=== PATIENT | male | born 1970 | race Caucasian/White ===

== ENCOUNTER 2023-11-22 09:49 | Outpatient (OUT) | payer OTHER, SELFPAY | END 2023-11-22 09:50 | disposition home or self-care (01) | PROVIDERS: PCP Family Medicine; Visit Provider Physician Assistant | DX: N52.9 Male erectile dysfunction, unspecified (principal); R68.82 Decreased libido | CPT/HCPCS: 36415; 84402; 84403 ==

== ENCOUNTER 2023-11-22 09:56 | Outpatient (OUT) | payer OTHER, SELFPAY ==
[2023-11-22 10:25] LABS: Basophils Absolute Auto 0.1 10^3/uL (0.0-0.1); Basophils Percent Auto 1.1 % (0.2-2.0); Eosinophils Absolute Auto 0.3 10^3/uL (0.0-0.7); Eosinophils Percent Auto 3.2 % (0.9-7.0); Hematocrit 52.1 % (42.0-54.0); Hemoglobin 17.2 g/dL (14.0-18.0); Immature Granulocytes Abs Auto 0.02 10^3/uL (0.00-0.03); Immature Granulocytes Pct Auto 0.2 % (0.0-0.5); Lymphocytes Absolute Auto 3.1 10^3/uL (1.2-3.8); Lymphocytes Percent Auto 32.7 % (20.5-60.0); Mean Corpuscular Hemoglobin 29.3 pg (25.9-34.0); Mean Corpuscular Volume 88.8 fL (80.0-94.0); Mean Platelet Volume 10.6 fL (9.5-13.5); Monocytes Absolute Auto 0.7 10^3/uL (0.3-0.8); Monocytes Percent Auto 7.7 % (1.7-12.0); Neutrophils Absolute Auto 5.2 10^3/uL (1.4-6.5); Neutrophils Percent Auto 55.1 % (43.0-75.0); Platelet Count 212 10^3/uL (150-450); Red Blood Count 5.87 10^6/uL (4.70-6.10); Red Cell Distribution Width 13.4 % (11.0-15.0); White Blood Count 9.4 10^3/uL (4.0-11.0)
[2023-11-22 10:34] LABS: Estimated Average Glucose 186 mg/dL; Glycohemoglobin A1C 8.1 % (4.5-6.2)
[2023-11-22 10:52] LABS: Alanine Aminotransferase 17 U/L (16-63); Albumin Globulin Ratio 0.7; Albumin Level 2.9 g/dL (3.4-5.0); Alkaline Phosphatase 161 U/L (46-116); Anion Gap 13.3; Aspartate Amino Transferase 11 U/L (15-37); BUN Creatinine Ratio 11.5; Bilirubin Total 0.5 mg/dL (0.2-1.0); Calcium 8.9 mg/dL (8.5-10.1); Chloride 103 mmol/L (98-107); Cholesterol 209 mg/dL (<=200); Estimated GFR (African America >60 (>=60); Estimated GFR (Non-African Ame >60 (>=60); Globulin 4.4 g/dL; Glucose 168 mg/dL (74-106); HDL Cholesterol 52 mg/dL (40-60); Potassium 4.3 mmol/L (3.5-5.1); Sodium 137 mmol/L (136-145); TSH W/ REFLEX FT4 1.246 uIU/mL (0.358-3.740); Total Protein 7.3 g/dL (6.4-8.2); Triglycerides 115 mg/dL (<=150)
[2023-11-22 10:57] LABS: Prostate Specific Antigen Scrn 0.72 ng/mL (<=4.00)
== END 2023-11-22 09:57 | disposition home or self-care (01) ==
LOC: LAB 09:56
PROVIDERS: PCP Family Medicine; Visit Provider Family Medicine
DX: Z00.00 Encounter for general adult medical examination without abnormal findings (principal); N52.9 Male erectile dysfunction, unspecified; R68.82 Decreased libido; E11.9 Type 2 diabetes mellitus without complications; I25.10 Atherosclerotic heart disease of native coronary artery without angina pectoris; E78.5 Hyperlipidemia, unspecified; I10 Essential (primary) hypertension; R00.0 Tachycardia, unspecified; Z12.5 Encounter for screening for malignant neoplasm of prostate
CPT/HCPCS: 36415; 80053; 80061; 82043; 83036; 84443; 85025; G0103

== ENCOUNTER 2024-01-05 16:10 | Outpatient (OUT) | payer OTHER, SELFPAY ==
--- OUTSIDE RECORDS SUMMARY | 2024-01-05 16:16 | XMS_ITS | CCD ---
Author Organization [facility] Care Team Providers Care Vice President Regulatory Name Role Phone DR JENELLE CARMONA Attending Unavailable DR JENELLE CARMONA Consulting Unavailable DR JENELLE CARMONA Primary Care Unavailable DR JENELLE CARMONA Admitting Unavailable JENELLE CARMONA Primary Care Physician [phone] MARIA ESTHER MENDEZ Attending Unavailable Melanie Dubose Attending Unavailable Allergies Allergy Classification Reported Allergen(s) Allergy Type Date of Onset Reaction(s) Facility (1 source) No Known Medication Allergies; Translations: [No Known Medication Allergies] Propensity to adverse reactions (disorder) [facility] Repository Medications Current Medications Medication Drug Class(es) Dates Sig (Normalized) Sig (Original) lisinopril 10 mg oral tablet (4 sources) Angiotensin Converting Enzyme Inhibitor Start: 11-20-2023 take 1 tablet by mouth once daily lisinopril 10 mg Tab TAKE 1 TABLET BY MOUTH EVERY DAY Start Date: 11/20/23 Status: Ordered Start: 09-02-2023 End: 09-02-2023 take 10 mg by mouth once daily Lisinopril Active 10 MG PO Daily September 02, 2023 12:26pm Problems Active Problems Problem Classification Problem Date Documented Da te Episodic/Chronic Cardiac dysrhythmias (2 sources) Tachycardia; Translations: [Tachycardia, unspecified] 09-12-2023 Episodic Coronary atherosclerosis and other heart disease (2 sources) Coronary arteriosclerosis; Translations: [Atherosclerotic heart disease of [place] coronary artery without angina pectoris] 09-12-2023 Chronic Diabetes mellitus without complication (2 sources) Type 2 diabetes mellitus; Translations: [Type 2 diabetes mellitus without complications] 09-12-2023 Chronic Disorders of lipid metabolism (4 sources) Hyperlipidemia; Translations: [Hyperlipidemia, unspecified] 09-12-2023 Chronic Essential hypertension (4 sources) Hypertensive disorder; Translations: [Essential (primary) hypertension] 09-12-2023 Chronic Other endocrine disorders (1 source) Testicular hypofunction; Translations: [Testicular hypofunction] Onset: 12-12-2023 Chronic Other endocrine disorders (1 source) Male hypogonadism 12-12-2023 Chronic Other male genital disorders (7 sources) Male erectile dysfunction, unspecified; Translations: [Erectile disorder] Onset: 11-19-2023 09-12-2023 Chronic Other screening for suspected conditions (not mental disorders or infectious disease) (7 sources) Patient encounter status; Translations: [Encounter for screening for malignant neoplasm of prostate] Onset: 11-20-2023 09-12-2023 Episodic Unclassified (3 sources) CONTACT W/AND (SUSP) EXPOS COVID-19; Translations: [CONTACT W/AND (SUSP) EXPOS COVID-19] Onset: 04-26-2021 Unclassified (2 sources) Patient encounter status 11-20-2023 Past or Other Problems Problem Classification Problem Date Documented Da te Episodic/Chronic Unclassified (1 source) CONTACT W/AND (SUSP) EXPOS COVID-19; Translations: [CONTACT W/AND (SUSP) EXPOS COVID-19] Onset: 04-20-2021 Results Test Name Value Interpretation Reference Range Facil ity Urology Office/Clinic Noteon 12-22-2023 Urology Office/Clinic Note Urology Office/Clinic Note Chief Complaint office visit to [facility] low T HPI Staff NAREN pt here to discuss low testosterone. Last seen IO 11/20/23. Dx: ED, low testosterone, prostate cancer screening. Labs 11/22/23 - Testosterone 253 & 6.9 free, PSA 0.72, A1c 8.1, CBC, CMP Patient denies all urinary symptoms. History of Present Illness I have reviewed and verified the staff HPI to be accurate for this encounter. Portions of this record may have been created with voice recognition artificial intelligence software, specifically [employer] and or [employer] ([employer]). Substitutions may have occurred due to the inherent limitations of voice recognition and artificial intelligence software. Review of Systems PHQ Score Initial Depression Screen Score: 0 SCORE Physical Exam Vitals & Measurements HR: 114(Peripheral) BP: 129/82 HT: 71 in HT: 180 cm WT: 102 kg WT: 224.4 lb BMI: 31.48 General: Well developed, well nourished, in no acute distress. Patient is here in office with today. Assessment/Plan 1. Hypogonadism male (E29.1: Testicular hypofunction) Pt reports some fatigue, some low libido, decreased muscle mass. Denies mood issues. [1] Testosterone F&T 11/29/19 - 273 (low) & 9.8 (nl) [2] Testosterone F&T 11/22/23 - 253 & 6.9 (both low) We discussed that he does qualify for TRT based on his testosterone levels. However, he did have a few other labs which were out of normal limits which may need additional workup. Hematocrit 11/22/23 - 52.1 We discussed risks associated with polycythemia, especially in the setting of TRT. Discussed with patient that we expect to see hematocrit level rise with use of TRT. This would require him to routinely donate blood in order to keep his levels in a safe range. Recommend donation prior to starting TRT, then every 90 days thereafter. Will titrate based on follow-up hematocrit levels. Alkaline phosphatase 11/22/23 - 161 Will defer to PCP regarding further workup for alk phos level. Discussed with patient that this may be an isolated elevation which goes back to normal limits, but cannot assume this in the setting of TRT. I will send a letter to PCP regarding level. If workup is within normal limits, or level decreases, can initiate TRT. -Will send letter to PCP regarding alkaline phosphatase level -If given okay to start TRT, will start 200 mg testosterone every 4 weeks per patient preference. -Patient to donate blood prior to starting TRT and schedule for every 90 days thereafter, will titrate to needs based on follow-up hematocrit levels. -Patient to follow-up 6 to 8 weeks after initiation of TRT 2. ED (erectile dysfunction) (N52.9: Male erectile dysfunction, unspecified) TARAN 1 Failed sildenafil in the past. Patient previously expressed interest in hypogonadism workup, see #1 -Continue to monitor 3. Prostate cancer screening (Z12.5: Encounter for screening for malignant neoplasm of prostate) PSA: 11/29/19 - 0.74 11/22/23 - 0.72 PSA remains low and stable Denies any family history of prostate CA -Continue to monitor, especially if moving forward with TRT Follow-up With When Contact Information VANESSA MORALES, MARIA ESTHER E, URL [address] [place] [id number] Additional Instructions: 6 to 8 weeks after the initiation of TRT, to be scheduled after hearing from PCP regarding LFTs Patient Education Cancer Screening for Males Hypogonadism, Male Problem List/Past Medical History Ongoing ED (erectile dysfunction) Hyperlipidemia Hypertension Hypogonadism male Low testosterone Prostate cancer screening Historical Male erectile dysfunction, unspecified Procedure/Surgical History None. Medications lisinopril 10 mg Tab Allergies No Known Medication Allergies Social History Tobacco 10 or more cigarettes (1/2 pack or more)/day in last 30 days Tobacco Use:. Never Smokeless Tobacco Use:. Cigarettes, Household tobacco concerns: No. Yes, 12/12/2023 Family History Family history is unknown [1] [facility]- [facility], referred for ED; MARIA ESTHER MENDEZ PA-C 11/20/2023 11:33 EDT [2] [facility], referred for ED; MARIA ESTHER MENDEZ PA-C 11/20/2023 11:33 EDT [facility] Comment on above: Result Comment: Elec tronically Signed By: TAM Dubose APRN, Melanie Laura\.br\Date and Time Signed: 12/22/23 06:45 EDT Provider Letteron 12-16-2023 Provider Letter Provider Letter JENELLE CARMONA, [address] [place] [id number] Re: KOKI HILL Date of : [address]BRAUN VERDUZCO, JENELLE HILL KOKI was evaluated at [facility] 12/12/2023 11:20:21 We discussed initiation of testosterone replacement therapy. However, on his labs prior to starting therapy, he had an isolated elevated alkaline phosphatase level of 161. I am deferring any further workup regarding this prior to starting TRT. I appreciate your assistance. Thank you Provider Signature: Melanie Hood APRN, FNP-C Nurse Practitioner [facility] [address] [place] [address] Normal [facility] Ambulatory Visit Summaryon 0 12-12-2023 Ambulatory Visit Summary Ambulatory Visit Summary CARLENE HILLANE :1970 Visit Date:12/12/2023 Ambulatory Visit Instructions Your Diagnosis Hypogonadism male ED (erectile dysfunction) Prostate cancer screening Your Care Team Attending Physician - TAM Dubose APRN, [place] [facility] Primary Care Physician - JENELLE CARMONA MD This Is Your Medications List Contact prescribing physician if questions or concerns lisinopril (lisinopril 10 mg Tab) Procedures Performed None. Discharge Vitals Heart Rate (Peripheral) 114 Blood Pressure 129/82 Height 180 cm Height 71 in Weight 102 kg Weight 224.4 lb BMI 31.48 Medications What When Instructions Unchanged lisinopril (lisinopril 10 mg Tab) TAKE 1 TABLET BY MOUTH EVERY DAY Contact prescribing physician if questions or concerns Allergies No Known Medication Allergies Problems Ongoing - Any problem that you are currently receiving treatment for. ED (erectile dysfunction) Hyperlipidemia Hypertension Hypogonadism male Low testosterone Prostate cancer screening Historical - Any problem that you are no longer receiving treatment for. Male erectile dysfunction, unspecified Patient Survey You may receive a survey via text or e-mail asking about your office visit. Please share your experience with us by completing your survey. We appreciate your feedback and thank you for choosing us for your care. [facility] Ambulatory Visit Summaryon 0 11-20-2023 Ambulatory Visit Summary Ambulatory Visit Summary KOKI HILL :1970 Visit Date:11/20/2023 Ambulatory Visit Instructions Your Diagnosis Erectile dysfunction Low testosterone Prostate cancer screening Your Care Team Attending Physician - MARIA ESTHER MENDEZ PA-C Primary Care Physician - JENELLE CARMONA MD This Is Your Medications List Contact prescribing physician if questions or concerns lisinopril (lisinopril 10 mg Tab) Procedures Performed None. Discharge Vitals Heart Rate (Peripheral) 111 Respiratory Rate 16 Blood Pressure 127/86 Height 180 cm Height 71 in Weight 102 kg Weight 224.4 lb BMI 31.48 What to do next You Need to Schedule the Following Appointments Follow Up with MARIA ESTHER MENDEZ PA-C, URL When: Comments: f/up pending labs Where: [address] [place] [address] Medications What When Instructions Unchanged lisinopril (lisinopril 10 mg Tab) TAKE 1 TABLET BY MOUTH EVERY DAY Contact prescribing physician if questions or concerns Allergies No Known Medication Allergies Problems Ongoing - Any problem that you are currently receiving treatment for. Hyperlipidemia Hypertension Low testosterone Prostate cancer screening Historical - Any problem that you are no longer receiving treatment for. Male erectile dysfunction, unspecified Patient Survey You may receive a survey via text or e-mail asking about your office visit. Please share your experience with us by completing your survey. We appreciate your feedback and thank you for choosing us for your care. Education Materials Erectile Dysfunction Erectile dysfunction (ED) is the inability to get or keep an erection in order to have sexual intercourse. ED is considered a symptom of an underlying disorder and is not considered a disease. ED may include: ? Inability to get an erection. ? Lack of enough hardness of the erection to allow penetration. ? Loss of erection before sex is finished. What are the causes? This condition may be caused by: ? Physical causes, such as: ? Artery problems. This may include heart disease, high blood pressure, atherosclerosis, and diabetes. ? Hormonal problems, such as low testosterone. ? Obesity. ? Nerve problems. This may include back or pelvic injuries, multiple sclerosis, Parkinson's disease, spinal cord injury, and stroke. ? Certain medicines, such as: ? Pain relievers. ? Antidepressants. ? Blood pressure medicines and water pills (diuretics). ? Cancer medicines. ? Antihistamines. ? Muscle relaxants. ? Lifestyle factors, such as: ? Use of drugs such as marijuana, cocaine, or opioids. ? Excessive use of alcohol. ? Smoking. ? Lack of physical activity or exercise. ? Psychological causes, such as: ? Anxiety or stress. ? Sadness or depression. ? Exhaustion. ? Fear about sexual performance. ? Guilt. What are the signs or symptoms? Symptoms of this condition include: ? Inability to get an erection. ? Lack of enough hardness of the erection to allow penetration. ? Loss of the erection before sex is finished. ? Sometimes having normal erections, but with frequent unsatisfactory episodes. ? Low sexual satisfaction in either partner due to erection problems. ? A curved penis occurring with erection. The curve may cause pain, or the penis may be too curved to allow for intercourse. ? Never having nighttime or morning erections. How is this diagnosed? This condition is often diagnosed by: ? Performing a physical exam to find other diseases or specific problems with the penis. ? Asking you detailed questions about the problem. ? Doing tests, such as: ? Blood tests to check for diabetes mellitus or high cholesterol, or to measure hormone levels. ? Other tests to check for underlying health conditions. ? An ultrasound exam to check for scarring. ? A test to check blood flow to the penis. ? Doing a sleep study at home to measure nighttime erections. How is this treated? This condition may be treated by: ? Medicines, such as: ? Medicine taken by mouth to help you achieve an erection (oral medicine). ? Hormone replacement therapy to replace low testosterone levels. ? Medicine that is injected into the penis. Your health care provider may instruct you how to give yourself these injections at home. ? Medicine that is delivered with a short applicator tube. The tube is inserted into the opening at the tip of the penis, which is the opening of the urethra. A tiny pellet of medicine is put in the urethra. The pellet dissolves and enhances erectile function. This is also called MUSE (medicated urethral system for erections) therapy. ? Vacuum pump. This is a pump with a ring on it. The pump and ring are placed on the penis and used to create pressure that helps the penis become erec (more content not included)... Normal [facility] Ambulatory Visit Summary Ambulatory Visit Summary KOKI HILL :1970 Visit Date:11/20/2023 Ambulatory Visit Instructions Your Diagnosis Erectile dysfunction Low testosterone Prostate cancer screening Your Care Team Attending Physician - MARIA ESTHER MENDEZ PA-C Primary Care Physician - JENELLE CARMONA MD This Is Your Medications List Contact prescribing physician if questions or concerns lisinopril (lisinopril 10 mg Tab) Procedures Performed None. Discharge Vitals Heart Rate (Peripheral) 111 Respiratory Rate 16 Blood Pressure 127/86 Height 180 cm Height 71 in Weight 102 kg Weight 224.4 lb BMI 31.48 What to do next You Need to Schedule the Following Appointments Follow Up with MARIA ESTHER MENDEZ PA-C, URL When: Comments: f/up pending labs Where: [address] [place] [address] Medications What When Instructions Unchanged lisinopril (lisinopril 10 mg Tab) TAKE 1 TABLET BY MOUTH EVERY DAY Contact prescribing physician if questions or concerns Allergies No Known Medication Allergies Problems Ongoing - Any problem that you are currently receiving treatment for. Hyperlipidemia Hypertension Low testosterone Prostate cancer screening Historical - Any problem that you are no longer receiving treatment for. Male erectile dysfunction, unspecified Patient Survey You may receive a survey via text or e-mail asking about your office visit. Please share your experience with us by completing your survey. We appreciate your feedback and thank you for choosing us for your care. Education Materials Erectile Dysfunction Erectile dysfunction (ED) is the inability to get or keep an erection in order to have sexual intercourse. ED is considered a symptom of an underlying disorder and is not considered a disease. ED may include: ? Inability to get an erection. ? Lack of enough hardness of the erection to allow penetration. ? Loss of erection before sex is finished. What are the causes? This condition may be caused by: ? Physical causes, such as: ? Artery problems. This may include heart disease, high blood pressure, atherosclerosis, and diabetes. ? Hormonal problems, such as low testosterone. ? Obesity. ? Nerve problems. This may include back or pelvic injuries, multiple sclerosis, Parkinson's disease, spinal cord injury, and stroke. ? Certain medicines, such as: ? Pain relievers. ? Antidepressants. ? Blood pressure medicines and water pills (diuretics). ? Cancer medicines. ? Antihistamines. ? Muscle relaxants. ? Lifestyle factors, such as: ? Use of drugs such as marijuana, cocaine, or opioids. ? Excessive use of alcohol. ? Smoking. ? Lack of physical activity or exercise. ? Psychological causes, such as: ? Anxiety or stress. ? Sadness or depression. ? Exhaustion. ? Fear about sexual performance. ? Guilt. What are the signs or symptoms? Symptoms of this condition include: ? Inability to get an erection. ? Lack of enough hardness of the erection to allow penetration. ? Loss of the erection before sex is finished. ? Sometimes having normal erections, but with frequent unsatisfactory episodes. ? Low sexual satisfaction in either partner due to erection problems. ? A curved penis occurring with erection. The curve may cause pain, or the penis may be too curved to allow for intercourse. ? Never having nighttime or morning erections. How is this diagnosed? This condition is often diagnosed by: ? Performing a physical exam to find other diseases or specific problems with the penis. ? Asking you detailed questions about the problem. ? Doing tests, such as: ? Blood tests to check for diabetes mellitus or high cholesterol, or to measure hormone levels. ? Other tests to check for underlying health conditions. ? An ultrasound exam to check for scarring. ? A test to check blood flow to the penis. ? Doing a sleep study at home to measure nighttime erections. How is this treated? This condition may be treated by: ? Medicines, such as: ? Medicine taken by mouth to help you achieve an erection (oral medicine). ? Hormone replacement therapy to replace low testosterone levels. ? Medicine that is injected into the penis. Your health care provider may instruct you how to give yourself these injections at home. ? Medicine that is delivered with a short applicator tube. The tube is inserted into the opening at the tip of the penis, which is the opening of the urethra. A tiny pellet of medicine is put in the urethra. The pellet dissolves and enhances erectile function. This is also called MUSE (medicated urethral system for erections) therapy. ? Vacuum pump. This is a pump with a ring on it. The pump and ring are placed on the penis and used to create pressure that helps the penis become erec (more content not included)... Normal [facility] Urology Office/Clinic Noteon 11-20-2023 Urology Office/Clinic Note Urology Office/Clinic Note Chief Complaint New Pt *ED HPI Staff New pt referred by Dr. Jenelle Carmona for ED. Last seen IO 07/24/17 by DLS for scrotal abscess. Only PSA on [facility] 11/29/19 - 0.74 Testosterone F&T 11/29/19 - 273 & 9.8 Has tried Viagra (dosage unknown), testosterone booster (OTC) in past yrs. Has been having problems achieving & maintaining erection. states they have not had sex in >9yrs. Denies all urinary sx. History of Present Illness Tests reviewed: reviewed UA, referral records I have reviewed the previous health record information and history for this patient from Dr. Jenelle Carmona . I have reviewed and verified the staff HPI to be accurate for this encounter. Review of Systems PHQ Score Initial Depression Screen Score: 0 SCORE no fever, chills, malaise, myalgia. no rash/lesions. no chest pain, palpitations, or SOB. no abdominal pain, nausea, vomiting. no unilateral calf swelling, redness, pain Physical Exam Vitals & Measurements HR: 111(Peripheral) RR: 16 BP: 127/86 HT: 71 in HT: 180 cm WT: 102 kg WT: 224.4 lb BMI: 31.48 General: nontoxic, NAD Mouth: moist mucosa Lungs: normal respiratory effort Cardio: regular rate, good distal perfusion Abdomen: nondistended, no suprapubic distention or tenderness, no CVA tenderness Neurologic: Grossly normal Skin: No rashes or suspicious lesions Assessment/Plan Last seen IO 07/24/17 by DLS for scrotal abscess. Pt is accompanied by his today. New pt referred by Dr. Jenelle Carmona for ED. Review of PCP referral note from 09/12/23 states personal hx CAD, CVA, PAD, DM II. Pt DENIES these diseases. Says he was told by his escapement matcher that his eyes showed signs of potential DM, but pt has no recent A1c and has never been on medication for DM. Pt denies CAD/PAD/CVA, has no idea why these are in his note. IPSS 1. No urinary complaints. Pt unable to provide urine sample today. 1. Erectile dysfunction (N52.9: Male erectile dysfunction, unspecified) TARAN 1. Pt has issues achieving erection yes, firmness yes, maintaining erection yes ED contributing factors: Cardiovascular disease no, hypertension yes, diabetes mellitus unsure (Says he was told by his escapement matcher that his eyes showed signs of potential DM, but pt has no recent A1c and has never been on medication for DM), hyperlipidemia yes(on previous labs, not on current meds) smoking yes recreational drugs no, alcohol no, major surgery (radical prostatectomy) or radiotherapy (pelvis or retroperitoneum) no Spinal cord and brain injuries no, Parkinson disease no, Alzheimer disease no, multiple sclerosis no, stroke no Peyronie's disease no, penile fracture no Hypogonadism yes(on previous labs. has never been on T replacement) hyper/hypothyroidism no Antihypertensives yes (on lisinopril) antidepressants no, antipsychotics no, antiandrogens no, Performance-related anxiety no, traumatic past experiences no, relationship problems no, anxiety/depression no Pt has tried: vacuum device no, oral medications yes Viagra, not sure what dose. was years ago. Today we only briefly discussed treatment options for ED including oral medications, erectile pumps, intracorporeal injection, and surgical options. We reviewed all of his contributing factors including those that are within his control to change and those which are not. I'd like to see where his T levels are at, since they were low 4 yrs ago. (see #2) We discussed that T replacement can often help men with mild ED, but that in general T replacement alone won't solve moderate-severe ED. -Recheck Testosterone level -Pt to get rest of blood work done for as well. -Pt is to call with when and where he gets labs done so we can monitor for results. -Follow up pending labs. Ordered: E&M of New Patient Moderate 45-59 Min 58015 Testosterone F&T 2. Low testosterone (R79.89: Other specified abnormal findings of blood chemistry) Testosterone F&T 11/29/19 - 273 (low) & 9.8 (nl) Pt reports some fatigue, some low libido, decreased muscle mass. Denies mood issues. -recheck testosterone f&t -pt has the following labs pending per PCP: CBC, CMP, Lipids, A1c, PSA, TSH. advised he needs to get all these done too as many will come into play if we proceed w T replacement. -pt will call once he completes his bloodwork and then we will schedule f/u 3. Prostate cancer screening (Z12.5: Encounter for screening for malignant neoplasm of prostate) 11/29/19 - 0.74 has order for updated level denies family hx Follow-up With When Contact Information MARIA ESTHER MENDEZ PA-C, URL [address] [place] [address] Additional Instructions: f/up pending labs Patient Education Erectile Dysfunction Documentation recorded by the scribsven Juarez accurately reflects the services(s) I performed and decisions made by me. Authenticated by Maria Esther Mendez PA-C on 11/20/2023 12:44:33. Sanjana Vizcaino (more content not included)... Normal [facility] Comment on above: Result Comment: Elec tronically Signed By: MARIA ESTHER MENDEZ PA-C\.br\Date and Time Signed: 11/20/23 12:44 EDT\.br\Electronically Co-Signed By: Sanjana Juarez\warner\Date and Time Co-Signed: 11/20/23 11:35 EDT Covid-19 PCR ([facility])on SARS-CoV-2 (COVID-19) RNA JONELLE+probe Ql (Unsp spec) Not detected Normal NOT DETECTED [facility] Comment on above: Result Comment: This test is not yet approved or cleared by the [place] FDA. When there are no FDA-approved or cleared tests available, and other criteria are met, FDA can make tests available under an emergency access mechanism called an Emergency Use Authorization (EUA). The EUA for this test is supported by the [place] of Health and Human Service's (HHS's) declaration that circumstances exist to justify the emergency use of in vitro diagnostics for the detection and/or diagnosis of the virus that causes COVID-19. This EUA will remain in effect (meaning this test can be used) for the duration of the COVID-19 declaration justifying emergency of IVDs, unless it is terminated or revoked by FDA (after which the test may no longer be used). When diagnostic testing is negative, the possibility of a false negative should be considered in the context of a patient's recent exposures and the presence of clinical signs and symptoms consistent with SARS-CoV-2. Performed By: #### [facility] #### [facility] [address] [place] [address] Dr. Samantha Campa Vital Signs Date Time Vital Sign Value Performing Clinician Faci litsuzan 12-12-2023 11:42-0400 Blood Pressure Location [facility] 12-12-2023 11:42-0400 Diastolic blood pressure 82 mm[Hg] [facility] 12-12-2023 11:42-0400 Heart rate 114 /min [facility] 12-12-2023 11:42-0400 Systolic blood pressure 129 mm[Hg] [facility] 11-20-2023 10:54-0400 Blood Pressure Location MARIA ESTHER MENDEZ [facility] 11-20-2023 10:54-0400 Diastolic blood pressure 86 mm[Hg] MARIA ESTHER MENDEZ [facility] 11-20-2023 10:54-0400 Heart rate 111 /min MARIA ESTHER MENDEZ [facility] 11-20-2023 10:54-0400 Respiratory rate 16 /min MARIA ESTHER MENDEZ [facility] 11-20-2023 10:54-0400 Systolic blood pressure 127 mm[Hg] MARIA ESTHER MENDEZ [facility] 09-12-2023 14:21-0400 Body height 177.8 cm [facility] 09-12-2023 14:21-0400 Body mass index (BMI) [Ratio] 32.1 kg/m2 [facility] 09-12-2023 14:21-0400 Body weight 101.6 kg [facility] 09-12-2023 14:21-0400 Diastolic blood pressure 82 mm[Hg] [facility] 09-12-2023 14:21-0400 Heart rate 118 /min [facility] 09-12-2023 14:21-0400 Systolic blood pressure 123 mm[Hg] [facility] Encounters Encounter Date Encounter Type Care Provider Facility Start: 12-12-2023 End: 12-12-2023 ambulatory Melanie X Orzech Facility:[facility] Start: 12-12-2023 End: 12-12-2023 Patient encounter procedure Melanie X Orzech [facility] Start: 11-20-2023 End: 11-20-2023 ambulatory MARIA ESTHER MENDEZ Facility:[facility] Start: 11-20-2023 End: 11-20-2023 Patient encounter procedure MARIA ESTHER MENDEZ [facility] [place] Start: 09-15-2023 ambulatory MARIA ESTHER MENDEZ Facility :[facility] Start: 09-12-2023 End: 09-12-2023 ambulatory [facility] Work Phone: Start: 09-12-2023 End: 09-12-2023 Patient encounter procedure [facility] Physician [facility] Work Phone: Start: 09-02-2023 Non-patient / Non-visit [facility] Physician [facility] Work Phone: Start: 04-20-2021 End: 04-20-[address] JENELLE CARMONA Facility:[facility] Procedures Date Procedure Procedure Detail Performing Clinician None (qualifier value) TRIPP DONOHUE VANESSA Plan of Treatment Date Care Activity Detail Author Start: 09-12-2023 Patient referral [facility] Work Phone: Comprehensive metabo lic 2000 panel - Serum or Plasma [facility] Microalbumin [Mass/v olume] in Urine [facility] Patient referral [facility] Work Phone: [facility] Immunizations Immunization Date Immunization Notes Care Provider Fa cility 08-02-2020 COVID-19 mRNA-1273 (Moderna) [facility] 07-05-2020 COVID-19 mRNA-1273 ([facility] Payers Date Payer Category Payer Unknown [id number] 1970 Unknown [id number] 1970 Unknown [id number] 1960 Unknown [id number] Social History Date Type Detail Facility Start: 09-12-2023 Tobacco smoking stat NHIS Smoker (finding) [facility] Start: 1970 Sex Assigned At Male Robin [facility] Start: 11-20-2023 End: 12-12-2023 Tobacco smoking status Heavy tobacco smoker (finding) [facility] Tobacco smoking status Never [facility] Sex Assigned At Male [facility] Functional Status Date Assessment Result Facility 12-12-2023 Functional Status N/A [facility] [place] 11-20-2023 Functional Status N/A [facility] Clinical Note 12-22-2023 Note Date & Type Note Facility 12-22-2023 Note Patient Education Oncology Cancer Screening for Males A cancer screening is a test or exam that checks for cancer. Work with your health care provider to create a cancer screening schedule that protects your health. Who should have screening? All people who are male should be considered for screening of certain cancers, including colorectal cancer, prostate cancer, lung cancer, and skin cancer. Your health care provider may recommend screenings for other types of cancer if: ? You have had cancer before. ? You have a family member with cancer. ? You have genes that could increase the risk of cancer. ? You have risk factors for certain cancers, such as current or past use of tobacco products or being overweight. What are the benefits of screening? Cancer screening is done to look for cancer in the very early stages, before it spreads and becomes harder to treat and before you would start to notice symptoms. Finding cancer early improves the chances of successful treatment. It may save your life. When should I be screened for cancer? When you should be screened for cancer depends on: ? Your age. ? Your medical history and your family's medical history. ? Certain lifestyle factors, such as smoking or other use of tobacco products. ? Environmental exposure, such as to asbestos. How is screening done? Colorectal cancer Colorectal cancer screening looks for cancer or for growths called polyps that often form before cancer starts. Tests to look for cancer or polyps include: ? Colonoscopy or flexible sigmoidoscopy. For these procedures, a flexible tube with a small camera is inserted into the rectum. ? CT colonography. This test uses X-rays and a contrast dye to check the colon for polyps. Tests to look for cancer in the stool (feces) include: ? Guaiac-based fecal occult blood test (FOBT). This test can find blood in stool. It can be done at home with a kit. ? Fecal immunochemical test (FIT). This test can find blood in stool. For this test, you will need to collect stool samples at home. ? Stool DNA test. This test looks for blood in stool and any changes in DNA that can lead to colon cancer. For this test, you will need to collect a stool sample at home and send it to a lab. All adults should have screenings starting at 45 years old and continuing through 75 years old. For males 76?85 years old, the decision to be screened should be based on a person's preferences, life expectancy, overall health, and prior screening history. Your health care provider may recommend screening before 45 years old. You will have tests every 1?10 years, depending on your results and the type of screening test. People at increased risk should start screening at an earlier age. Talk with your health care provider about which screening test is right for you and how often you should be screened. Prostate cancer Prostate cancer screening is done with blood tests and a digital rectal exam. During this exam, a health care provider uses a gloved finger to check prostate size. You may need to be screened for prostate cancer if: ? You have risk factors for prostate cancer, such as being an person or having a close family member with prostate cancer. ? You have had gene changes or a genetic condition that was passed on to you from a parent (inherited). These gene changes or genetic conditions include BRCA1 or BRCA2 gene mutations or Ni syndrome. ? You have symptoms of prostate cancer, such as problems urinating or problems getting or keeping an erection (erectile dysfunction). When you have been screened for prostate cancer, future screening may be recommended based on the results of your blood tests. Prostate cancer screening for males with average risk may start at 50 years old. Males with risk factors may need to be screened earlier, at 40?45 years old. Talk with your health care provider about whether screening is right for you and, if so, how often you should be screened. Lung cancer Lung cancer screening is done with a CT scan that looks for abnormal changes in the lungs. Discuss lung cancer screening with your health care provider if you are 50?80 years old and if any of the following apply to you: ? You currently smoke. ? You used to smoke heavily. ? You have a smoking history of 1 pack of cigarettes a day for 20 years or 2 packs a day for 10 years. You may need to be screened every year if you smoke heavily or if you used to smoke. Skin cancer Skin cancer screening is done by checking the skin for unusual moles or spots and any changes in existing moles. Your health care provider should check your skin for signs of skin cancer at every physical exam. You should check your skin every month and tell your health care provider right away if anything looks unusual. Males with a cxmkqx-uhqb-hlkasi risk for skin cancer may want to see a animal skinner (research professional) for an annual body check. Where (more content not included)... [facility] Evaluation + Plan note 11-20-2023 Note Date & Type Note Facility 11-20-2023 Evaluation + Plan note Diagnostic Tests PendingTestosterone F&T 11/20/23 [facility] Discharge instructions 11-20-2023 Note Date & Type Note Facility 11-20-2023 Hospital Discharg e instructions Patient Education 11/20/2023 11:33:31 Erectile Dysfunction Erectile Dysfunction Erectile dysfunction (ED) is the inability to get or keep an erection in order to have sexual intercourse. ED is considered a symptom of an underlying disorder and is not considered a disease. ED may include: Inability to get an erection. Lack of enough hardness of the erection to allow penetration. Loss of erection before sex is finished. What are the causes? This condition may be caused by: Physical causes, such as: ?Artery problems. This may include heart disease, high blood pressure, atherosclerosis, and diabetes. ?Hormonal problems, such as low testosterone. ?Obesity. ?Nerve problems. This may include back or pelvic injuries, multiple sclerosis, Parkinson's disease, spinal cord injury, and stroke. Certain medicines, such as: ?Pain relievers. ?Antidepressants. ?Blood pressure medicines and water pills (diuretics). ?Cancer medicines. ?Antihistamines. ?Muscle relaxants. Lifestyle factors, such as: ?Use of drugs such as marijuana, cocaine, or opioids. ?Excessive use of alcohol. ?Smoking. ?Lack of physical activity or exercise. Psychological causes, such as: ?Anxiety or stress. ?Sadness or depression. ?Exhaustion. ?Fear about sexual performance. ?Guilt. What are the signs or symptoms? Symptoms of this condition include: Inability to get an erection. Lack of enough hardness of the erection to allow penetration. Loss of the erection before sex is finished. Sometimes having normal erections, but with frequent unsatisfactory episodes. Low sexual satisfaction in either partner due to erection problems. A curved penis occurring with erection. The curve may cause pain, or the penis may be too curved to allow for intercourse. Never having nighttime or morning erections. How is this diagnosed? This condition is often diagnosed by: Performing a physical exam to find other diseases or specific problems with the penis. Asking you detailed questions about the problem. Doing tests, such as: ?Blood tests to check for diabetes mellitus or high cholesterol, or to measure hormone levels. ?Other tests to check for underlying health conditions. ?An ultrasound exam to check for scarring. ?A test to check blood flow to the penis. Doing a sleep study at home to measure nighttime erections. How is this treated? This condition may be treated by: Medicines, such as: ?Medicine taken by mouth to help you achieve an erection (oral medicine). ?Hormone replacement therapy to replace low testosterone levels. ?Medicine that is injected into the penis. Your health care provider may instruct you how to give yourself these injections at home. ?Medicine that is delivered with a short applicator tube. The tube is inserted into the opening at the tip of the penis, which is the opening of the urethra. A tiny pellet of medicine is put in the urethra. The pellet dissolves and enhances erectile function. This is also called MUSE (medicated urethral system for erections) therapy. Vacuum pump. This is a pump with a ring on it. The pump and ring are placed on the penis and used to create pressure that helps the penis become erect. Penile implant surgery. In this procedure, you may receive: ?An inflatable implant. This consists of cylinders, a pump, and a reservoir. The cylinders can be inflated with a fluid that helps to create an erection, and they can be deflated after intercourse. ?A semi-rigid implant. This consists of two silicone rubber rods. The rods provide some rigidity. They are also flexible, so the penis can both curve downward in its normal position and become straight for sexual intercourse. Blood vessel surgery to improve blood flow to the penis. During this procedure, a blood vessel from a different part of the body is placed into the penis to allow blood to flow around (bypass) damaged or blocked blood vessels. Lifestyle changes, such as exercising more, losing weight, and quitting smoking. Follow these instructions at home: Medicines Take wwhj-zfv-qkrdfcb and prescription medicines only as told by your health care provider. Do not increase the dosage without first discussing it with your health care provider. If you are using self-injections, do injections as directed by your health care provider. Make sure you avoid any veins that are on the surface of the penis. After giving an injection, apply pressure to the injection site for 5 minutes. Talk to your health care provider about how to prevent headaches while taking ED medicines. These medicines may cause a sudden headache due to the increase in blood flow in your body. General instructions Exercise regularly, as directed by your health care provider. Work with your health care provider to lose weight, if needed. Do not use any products that contain nicotine or tobacco. These products include cigarettes, chewing tobacco, and vaping devices, such as e-cigarettes. If you need help quitting, ask your health care provider. Before using a vacuum pump, read the instructions that come with the pump and discuss any questions with your health care provider. Keep all follow-up visits. This is important. Contact a health care provider if: You feel nauseous. You are vomiting. You get sudden headaches while taking ED medicines. You have any concerns about your sexual health. Get help right away if: You are taking oral or injectable medicines and you have an erection that lasts longer than 4 hours. If your health care provider is unavailable, go to the nearest emergency room for evaluation. An erection that lasts much longer than 4 hours can result in permanent damage to your penis. You have severe pain in your groin or abdomen. You develop redness or severe swelling of your penis. You have redness spreading at your groin or lower abdomen. You are unable to urinate. You experience chest pain or a rapid heartbeat (palpitations) after taking oral medicines. These symptoms may represent a serious problem that is an emergency. Do not wait to see if the symptoms will go away. Get medical help right away. Call your local emergency services (911 in the [place] Do not drive yourself to the hospital. Summary Erectile dysfunction (ED) is the inability to get or keep an erection during sexual intercourse. This condition is diagnosed based on a physical exam, your symptoms, and tests to determine the cause. Treatment varies depending on the cause and may include medicines, hormone therapy, surgery, or a vacuum pump. You may need follow-up visits to make sure that you are using your medicines or devices correctly. Get help right away if you are taking or injecting medicines and you have an erection that lasts longer than 4 hours. This information is not intended to replace advice given to you by your health care provider. Make sure you discuss any questions you have with your health care provider. Document Revised: 06/27/2021 Document Reviewed: 06/27/2021 [employer] Patient Education 2022 [employer]. Follow Up Care 09/15/2023 11:54:46 With:MARIA ESTHER MENDEZ PA-C, URL Address: [address] [address] [place] [address] When: Unknown Comments:f/up pending labs [facility] Clinical Note 11-20-2023 Note Date & Type Note Facility 11-20-2023 Note Patient Education Urology Erectile Dysfunction Erectile dysfunction (ED) is the inability to get or keep an erection in order to have sexual intercourse. ED is considered a symptom of an underlying disorder and is not considered a disease. ED may include: ? Inability to get an erection. ? Lack of enough hardness of the erection to allow penetration. ? Loss of erection before sex is finished. What are the causes? This condition may be caused by: ? Physical causes, such as: ? Artery problems. This may include heart disease, high blood pressure, atherosclerosis, and diabetes. ? Hormonal problems, such as low testosterone. ? Obesity. ? Nerve problems. This may include back or pelvic injuries, multiple sclerosis, Parkinson's disease, spinal cord injury, and stroke. ? Certain medicines, such as: ? Pain relievers. ? Antidepressants. ? Blood pressure medicines and water pills (diuretics). ? Cancer medicines. ? Antihistamines. ? Muscle relaxants. ? Lifestyle factors, such as: ? Use of drugs such as marijuana, cocaine, or opioids. ? Excessive use of alcohol. ? Smoking. ? Lack of physical activity or exercise. ? Psychological causes, such as: ? Anxiety or stress. ? Sadness or depression. ? Exhaustion. ? Fear about sexual performance. ? Guilt. What are the signs or symptoms? Symptoms of this condition include: ? Inability to get an erection. ? Lack of enough hardness of the erection to allow penetration. ? Loss of the erection before sex is finished. ? Sometimes having normal erections, but with frequent unsatisfactory episodes. ? Low sexual satisfaction in either partner due to erection problems. ? A curved penis occurring with erection. The curve may cause pain, or the penis may be too curved to allow for intercourse. ? Never having nighttime or morning erections. How is this diagnosed? This condition is often diagnosed by: ? Performing a physical exam to find other diseases or specific problems with the penis. ? Asking you detailed questions about the problem. ? Doing tests, such as: ? Blood tests to check for diabetes mellitus or high cholesterol, or to measure hormone levels. ? Other tests to check for underlying health conditions. ? An ultrasound exam to check for scarring. ? A test to check blood flow to the penis. ? Doing a sleep study at home to measure nighttime erections. How is this treated? This condition may be treated by: ? Medicines, such as: ? Medicine taken by mouth to help you achieve an erection (oral medicine). ? Hormone replacement therapy to replace low testosterone levels. ? Medicine that is injected into the penis. Your health care provider may instruct you how to give yourself these injections at home. ? Medicine that is delivered with a short applicator tube. The tube is inserted into the opening at the tip of the penis, which is the opening of the urethra. A tiny pellet of medicine is put in the urethra. The pellet dissolves and enhances erectile function. This is also called MUSE (medicated urethral system for erections) therapy. ? Vacuum pump. This is a pump with a ring on it. The pump and ring are placed on the penis and used to create pressure that helps the penis become erect. ? Penile implant surgery. In this procedure, you may receive: ? An inflatable implant. This consists of cylinders, a pump, and a reservoir. The cylinders can be inflated with a fluid that helps to create an erection, and they can be deflated after intercourse. ? A semi-rigid implant. This consists of two silicone rubber rods. The rods provide some rigidity. They are also flexible, so the penis can both curve downward in its normal position and become straight for sexual intercourse. ? Blood vessel surgery to improve blood flow to the penis. During this procedure, a blood vessel from a different part of the body is placed into the penis to allow blood to flow around (bypass) damaged or blocked blood vessels. ? Lifestyle changes, such as exercising more, losing weight, and quitting smoking. Follow these instructions at home: Medicines ? Take fjsf-sxe-hqqprwv and prescription medicines only as told by your health care provider. Do not increase the dosage without first discussing it with your health care provider. ? If you are using self-injections, do injections as directed by your health care provider. Make sure you avoid any veins that are on the surface of the penis. After giving an injection, apply pressure to the injection site for 5 minutes. ? Talk to your health care provider about how to prevent headaches while taking ED medicines. These medicines may cause a sudden headache due to the increase in blood flow in your body. General instructions ? Exercise regularly, as directed by your health care provider. Work with your health care provider to lose weight, if needed. ? Do not use any products that contain nicotine or tobacco. These (more content not included)... [facility] Discharge instructions 09-12-2023 Note Date & Type Note Facility 09-12-2023 Hospital Discharg e instructions Ambulatory OrdersReferral to Urology Time Frame: 09/12/23, Location: None Selected [facility] Work Phone: Evaluation note Note Date & Type Note Facility Evaluation note Diagnosis Onset Date Coronary artery disease acut e Erectile disorder acute Hyperlipidemia acute Hypertension acute Screening PSA (prostate specific antigen) acute Tachycardia acute Type II diabetes mellitus ac nicky [facility] Work Phone: Hospital course Narrative Note Date & Type Note Facility Hospital course Narrative No data available for this section [facility] Hospital Discharge instructions Note Date & Type Note Facility Hospital Discharge instructions No data available for this section [facility] [place] Progress note Note Date & Type Note Facility Progress note No data available for this section [facility] Summary Purpose Family History No Family History Records Found Relationship Condition Age at Onset Recorded Date/T alena Not Specified Diabetes mellitus Unknown Advance Directives No Advanced Directives Records Found Advance Directive Response Recorded Date/ Time Advance Directives No September 11 2:15pm Chief Complaint and Reason for Visit Chief Complaint Amb Documentation wellness Reason for Visit Coronary artery dise ase Erectile disorder Hyperlipidemia Hypertension Screening PSA (prostate specific antigen) Tachycardia Type II diabetes mellitus Additional Source Comments (unrecognized sect ion and content) No Status Records FoundNo Status Records Found INFORMATION SOURCE (unrecogn ized section and content) DATE CREATED AUTHOR 04/27/2021 [facility] DATE CREATED AUTHOR AUTHOR'S ORGANIZ ATION 12/22/2023 [facility] Care Teams (unrecognized sec tion and content) Team Status: Active Member Role Status Dates Jenelle Carmona MD Primary Care Provider Active Team Status: Active Member Role Status Dates Jenelle Carmona MD Primary Care Provider Active Start: September 02, 2023 JASMYNE Nicole Attending Provider Active Start : September 02, 2023 Team Status: Inactive Member Role Status Dates Jenelle Carmona MD Primary Care Provide r, Attending Provider Active Start: September 12, 2023 End: September 12, 2023 Goals (unrecognized section and content) Goals may be documented in a n alternate section No data available for this section No data available for this section FOR RECORDS PERTAINING TO PATIENTS WHO ARE OR HAVE BEEN ENROLLED IN A CHEMICAL DEPENDENCY/SUBSTANCEABUSE PROGRAM, SOME INFORMATION MAY BE OMITTED. This clinical summary was aggregated from multiple sources. Caution should be exercised in using it in the provision of clinical care. This summary normalizes information from multiple sources, and as a consequence, information in this document may materially change the coding, format and clinical context of patient data. In addition, data may be omitted in some cases. CLINICAL DECISIONS SHOULD BE BASED ON THE PRIMARY CLINICAL RECORDS. [facility] provides no warranty or guarantee of the accuracy or completeness of information in this document.
[2024-01-05 16:55] LABS: Alanine Aminotransferase 13 U/L (16-63); Albumin Globulin Ratio 0.7; Alkaline Phosphatase 95 U/L (46-116); Anion Gap 15.2; Aspartate Amino Transferase 11 U/L (15-37); BUN Creatinine Ratio 13.5; Bilirubin Total 0.5 mg/dL (0.2-1.0); Calcium 9.2 mg/dL (8.5-10.1); Carbon Dioxide 23.4 mmol/L (21.0-32.0); Chloride 100 mmol/L (98-107); Estimated GFR (African America >60 (>=60); Estimated GFR (Non-African Ame >60 (>=60); Globulin 4.6 g/dL; Glucose 131 mg/dL (74-106); Potassium 3.6 mmol/L (3.5-5.1); Sodium 135 mmol/L (136-145); Total Protein 7.6 g/dL (6.4-8.2)
== END 2024-01-05 16:11 | disposition home or self-care (01) ==
LOC: LAB 16:12
PROVIDERS: PCP Family Medicine; Visit Provider Family Medicine
DX: R79.89 Other specified abnormal findings of blood chemistry (principal)
CPT/HCPCS: 36415; 80053